=== PATIENT | female | born 1950 | race Caucasian/White ===

== ENCOUNTER 2018-12-18 02:05 | Emergency (ER) | payer MEDICARE, OTHER ==
[2018-12-18] MEDS ORDERED: AMLO-127 PO (02:12)
[2018-12-18] MEDS ORDERED: LEVO50TA86 PO (02:12)
--- NOTE | 2018-12-18 02:14 | ER Report ---
History and Physical Time Seen By MD: 02:13 HPI/ROS CHIEF COMPLAINT: Chest discomfort, radiation to left arm HISTORY OF PRESENT ILLNESS: Patient is a 68-year-old female here with complaints of vague chest discomfort, discomfort and left arm which started approximately 12:15 and had associated shortness of breath, acutely worsening shortly prior to arrival and the patient woke up from sleep. Patient denies focal neurological deficits, she is visiting the area from [place]. Patient does have a history significant for pulmonary embolism not currently on anticoagulation. Denies prior history of heart attacks. Patient is afebrile, hemodynamically stable at time of evaluation. REVIEW OF SYSTEMS: Constitutional: No fever, no chills. Eyes: No discharge. ENT: No sore throat. Cardiovascular: + chest discomfort, no palpitations. Respiratory: No cough, + shortness of breath. Gastrointestinal: No abdominal pain, no vomiting. Genitourinary: No hematuria. Musculoskeletal: No back pain. Skin: No rashes. Neurological: No headache. Allergies: Coded Allergies: Penicillins (Verified Allergy, Severe, ANAPHYLAXIS, 12/18/18) Home Meds Reported Medications Amlodipine Besylate (AMLODIPINE BESYLATE) 10 Mg Tablet, 1 TAB PO QDAY, TAB 12/18/18 Levothyroxine Sodium (LEVOTHYROXINE SODIUM) 50 Mcg Tablet, 50 MCG PO QDAY, TAB 12/18/18 Constitutional Vital Sign - Last 24 Hours 12/18/18 12/18/18 12/18/18 12/18/18 02:12 02:30 03:00 04:00 Temp 98.2 Pulse 71 64 64 63 Resp 18 20 19 18 B/P (MAP) 166/85 (112) 163/88 (113) 162/85 (110) Pulse Ox 95 90 90 92 O2 Delivery Room Air 12/18/18 04:12 Pulse 55 Resp 17 Pulse Ox 91 Physical Exam General Appearance: The patient is alert, has no immediate need for airway protection and no signs of toxicity. NAD, uncomfortable appearing Eyes: Pupils equal and round no pallor or injection. ENT, Mouth: Mucous membranes are moist. Respiratory: There are no retractions, lungs are clear to auscultation. Cardiovascular: Regular rate and rhythm. Gastrointestinal: Abdomen is soft and non tender, no masses, bowel sounds normal. Neurological: No focal deficits Skin: Warm and dry, no rashes. Musculoskeletal: Neck is supple non tender. Extremities are nontender, nonswollen and have full range of motion. DIFFERENTIAL DIAGNOSIS: After history and physical exam differential diagnosis was considered for chest pain including but not limited to myocardial ischemia, pericarditis pulmonary embolus, chest wall pain, pleural inflammation and pulmonary infectious causes. Medical Decision Making Data Points Result Diagram: 12/18/18 0228 12/18/18 0228 Laboratory Hematology Test 12/18/18 02:28 12/18/18 04:17 Red Blood Count 4.88 M/uL (4.17-5.56) Mean Corpuscular Volume 89.4 fL (80.0-96.0) Mean Corpuscular Hemoglobin 30.0 pg (26.0-33.0) Mean Corpuscular Hemoglobin Concent 33.6 g/dL (32.0-36.0) Red Cell Distribution Width 14.1 % (11.5-14.5) Mean Platelet Volume 9.2 fL (7.2-11.1) Neutrophils (%) (Auto) 47.6 % (39.4-72.5) Lymphocytes (%) (Auto) 39.2 % (17.6-49.6) Monocytes (%) (Auto) 8.4 % (4.1-12.4) Eosinophils (%) (Auto) 3.1 % (0.4-6.7) Basophils (%) (Auto) 1.7 % (0.3-1.4) Nucleated RBC Relative Count (auto) 0.1 /100WBC Neutrophils # (Auto) 2.8 K/uL (2.0-7.4) Lymphocytes # (Auto) 2.3 K/uL (1.3-3.6) Monocytes # (Auto) 0.5 K/uL (0.3-1.0) Eosinophils # (Auto) 0.2 K/uL (0.0-0.5) Basophils # (Auto) 0.1 K/uL (0.0-0.1) Nucleated RBC Absolute Count (auto) 0.00 K/uL Prothrombin Time 12.8 seconds (12.0-14.4) Prothromb Time International Ratio 0.97 Activated Partial Thromboplast Time 30 seconds (23-35) D-Dimer Quantitative (PE/DVT) 0.50 ug/ml (0-0.50) Sodium Level 140 mmol/L (137-145) Potassium Level 3.8 mmol/L (3.5-5.0) Chloride Level 104 mmol/L (98-107) Carbon Dioxide Level 25 mmol/L (22-31) Blood Urea Nitrogen 28 mg/dl (7-18) Creatinine 0.80 mg/dl (0.52-1.04) Glomerular Filtration Rate Calc > 60.0 Random Glucose 106 mg/dl (75-110) Calcium Level 9.7 mg/dl (8.4-10.2) Total Bilirubin 0.9 mg/dl (0.2-1.3) Aspartate Amino Transf (AST/SGOT) 25 U/L (0-35) Alanine Aminotransferase (ALT/SGPT) 32 U/L (0-56) Alkaline Phosphatase 83 U/L (0-126) B-Type Natriuretic Peptide 9 pg/ml (0-100) Total Protein 7.7 g/dl (6.3-8.2) Albumin 4.3 g/dl (3.5-5.0) Troponin I < 0.012 ng/ml Chemistry Test 12/18/18 02:28 12/18/18 04:17 White Blood Count 5.9 k/uL (4.5-11.0) Red Blood Count 4.88 M/uL (4.17-5.56) Hemoglobin 14.6 g/dL (12.0-16.0) Hematocrit 43.6 % (34.0-47.0) Mean Corpuscular Volume 89.4 fL (80.0-96.0) Mean Corpuscular Hemoglobin 30.0 pg (26.0-33.0) Mean Corpuscular Hemoglobin Concent 33.6 g/dL (32.0-36.0) Red Cell Distribution Width 14.1 % (11.5-14.5) Platelet Count 212 K/uL (150-450) Mean Platelet Volume 9.2 fL (7.2-11.1) Neutrophils (%) (Auto) 47.6 % (39.4-72.5) Lymphocytes (%) (Auto) 39.2 % (17.6-49.6) Monocytes (%) (Auto) 8.4 % (4.1-12.4) Eosinophils (%) (Auto) 3.1 % (0.4-6.7) Basophils (%) (Auto) 1.7 % (0.3-1.4) Nucleated RBC Relative Count (auto) 0.1 /100WBC Neutrophils # (Auto) 2.8 K/uL (2.0-7.4) Lymphocytes # (Auto) 2.3 K/uL (1.3-3.6) Monocytes # (Auto) 0.5 K/uL (0.3-1.0) Eosinophils # (Auto) 0.2 K/uL (0.0-0.5) Basophils # (Auto) 0.1 K/uL (0.0-0.1) Nucleated RBC Absolute Count (auto) 0.00 K/uL Prothrombin Time 12.8 seconds (12.0-14.4) Prothromb Time International Ratio 0.97 Activated Partial Thromboplast Time 30 seconds (23-35) D-Dimer Quantitative (PE/DVT) 0.50 ug/ml (0-0.50) Glomerular Filtration Rate Calc > 60.0 Calcium Level 9.7 mg/dl (8.4-10.2) Total Bilirubin 0.9 mg/dl (0.2-1.3) Aspartate Amino Transf (AST/SGOT) 25 U/L (0-35) Alanine Aminotransferase (ALT/SGPT) 32 U/L (0-56) Alkaline Phosphatase 83 U/L (0-126) B-Type Natriuretic Peptide 9 pg/ml (0-100) Total Protein 7.7 g/dl (6.3-8.2) Albumin 4.3 g/dl (3.5-5.0) Troponin I < 0.012 ng/ml Coagulation Test 12/18/18 02:28 Prothrombin Time 12.8 seconds Prothromb Time International Ratio 0.97 Activated Partial Thromboplast Time 30 seconds D-Dimer Quantitative (PE/DVT) 0.50 ug/ml EKG/Imaging EKG Interpretation PATIENT NAME: RUBY HALL : [id number] MR: [id number] V: [id number] EXAM DATE: ORDERING PHYSICIAN: BHAVIK HANKS TECHNOLOGIST: RAJ Test Reason : CARDIAC Blood Pressure : / mmHG Vent. Rate : 066 BPM Atrial Rate : 066 BPM P-R Int : 228 ms QRS Dur : 096 ms QT Int : 426 ms P-R-T Axes : 012 -21 040 degrees QTc Int : 446 ms Sinus rhythm with 1st degree AV block Otherwise normal ECG No previous ECGs available Referred By: Confirmed By: Monitor Interpretation: Normal Sinus Rhythm Imaging PATIENT NAME: Ruby Hall : 1950 MR: [id number] V: [id number] EXAM DATE: ORDERING PHYSICIAN: BHAVIK HANKS TECHNOLOGIST: Location: [facility] Patient: Ruby Hall : 1950 Visit/Account:[id number] Date of Sevice: 12/18/2018 PORTABLE CHEST: Indication: Chest pain. Technique: A single frontal film was obtained. Comparison: None available. Skeletal and soft tissue structures: Intact and unremarkable. Heart and mediastinum: Within normal limits. Lung craig: Well-expanded and clear. Pleural spaces: Unremarkable. Impression: No acute process. Report Dictated By: Bhupendra Reich MD at 12/18/2018 2:56 AM ED Course/Re-evaluation ED Course Patient is a 68-year-old female here with complaints of chest discomfort, radiation into the left arm, shortness of breath starting approximately 12:15 tonight. Patient does have a history significant for pulmonary embolus, troponin, EKG, d-dimer were collected with chest x-ray and aspirin admi nistration. Chest x-ray showed no acute findings. D-dimer was negative making pulmonary embolism unlikely. Initial troponin was negative however a repeat troponin was completed at 4 hours post symptom onset at 4:15. Labs were otherwise unremarkable, EKG showed no ischemic changes or arrhythmias or i nterval abnormalities. Return precautions provided. Close PCP follow-up recommended with consideration for possible cardiology follow-up. Decision to Disposition Date: Dec 18, 2018 Decision to Disposition Time: 04:49 Depart Departure Latest Vital Signs Vital Signs Date Time Temp Pulse Resp B/P (MAP) Pulse Ox O2 Delivery O2 Flow Rate FiO2 12/18/18 04:12 55 17 91 12/18/18 04:00 162/85 (110) 12/18/18 02:12 98.2 Room Air Impression: Primary Impression: Chest pain Condition: Improved Disposition: HOME OR SELF-CARE Patient Instructions: Chest Pain (ED) Additional Instructions: Please drink plenty of water. Please follow-up with your family doctor in the next 24-48 hours. Please return promptly if you develop recurrent episodes of chest pain, difficulty breathing, fevers or chills, nausea, vomiting. Today her cardiac enzymes were found to be normal, your clot marker was negative making pulmonary embolism less likely. Chest x-ray showed no signs of pneumonia or fluid on the lungs. BHAVIK HANKS DO Dec 18, 2018 02:14
[2018-12-18] MEDS ORDERED: NS(*) 0.9% 1000 ML BAG 1,000 ML IV ONE (02:23)
[2018-12-18] MEDS ORDERED: ASPIRIN 81 MG CHEW PO ONE (02:25)
[2018-12-18 02:38] LABS: PLATELET COUNT, AUTOMATED 212 K/uL (150-450)
[2018-12-18 02:51] LABS: INR 0.97
--- NOTE | 2018-12-18 03:20 | RADIOLOGY IMAGING REPORT ---
FACILITY: [facility] [place] PATIENT NAME: Darcie Chiu : 1950 MR: [id number] V: [id number] EXAM DATE: ORDERING PHYSICIAN: BHAVIK HANKS TECHNOLOGIST: Location: [facility] Patient: Darcie Chiu : 1950 Visit/Account:[id number] Date of Sevice: 12/18/2018 PORTABLE CHEST: Indication: Chest pain. Technique: A single frontal film was obtained. Comparison: None available. Skeletal and soft tissue structures: Intact and unremarkable. Heart and mediastinum: Within normal limits. Lung craig: Well-expanded and clear. Pleural spaces: Unremarkable. Impression: No acute process. Report Dictated By: Bhupendra Reich MD at 12/18/2018 2:56 AM Report E-Signed By: Bhupendra Reich MD at 12/18/2018 2:57 AM WSN:[id number]
--- NOTE | 2018-12-18 03:23 | EKG ---
FACILITY: [facility] PATIENT NAME: RUBY HALL : [id number] MR: [id number] V: [id number] EXAM DATE: ORDERING PHYSICIAN: BHAVIK HANKS TECHNOLOGIST: RAJ Test Reason : CARDIAC Blood Pressure : / mmHG Vent. Rate : 066 BPM Atrial Rate : 066 BPM P-R Int : 228 ms QRS Dur : 096 ms QT Int : 426 ms P-R-T Axes : 012 -21 040 degrees QTc Int : 446 ms Sinus rhythm with 1st degree AV block Otherwise normal ECG No previous ECGs available Confirmed by Remy Hernandez [id number]) on 12/18/2018 7:33:42 AM Referred By: Confirmed By:Remy John
[2018-12-18 04:00] VITALS: BP 162/85
[2018-12-18] MEDS ORDERED: LIDOCAINE 2% VISC SLN 15ML UDC PO ONE (04:55)
[2018-12-18] MEDS ORDERED: MAG HYD/AL HYD/SIMETH 30ML UDC PO ONE (04:55)
== END 2018-12-18 05:19 | disposition home or self-care (01) ==
LOC: ER 02:31
DX: R07.9 Chest pain, unspecified (principal)
CPT/HCPCS: 71045; 83880; 84484; 85025; 85379; 85610; 85730; 93005; 96360; 96361; 99284; A9270; J7030; 82040; 82247; 82310; 82374; 82435; 82565; 82947; 84075; 84132; 84155; 84295; 84450; 84460; 84520